=== PATIENT | male | born 1980 | race Caucasian/White ===

== ENCOUNTER 2017-11-01 13:48 | Emergency (ER) | payer BC, SELFPAY ==
[2017-11-01 14:00] VITALS: BP 153/94; PULSE 93; RESP 22; TEMP 37.1; O2SAT 97; BMI 28.2
--- NOTE | 2017-11-01 14:10 | HMH.EDUTC ---
[facility] [place] Disposition Clinical Impression: Acute thoracic back pain Qualifiers: Back pain laterality: midline Qualified Code(s): M54.6 - Pain in thoracic spine Low back pain Qualifiers: Chronicity: acute Back pain laterality: left Sciatica presence: without sciatica Qualified Code(s): M54.5 - Low back pain Disposition: Still a Patient Condition on Discharge: Good Time of Disposition: 14:40 (Transfer to ER) Medical Decision Making - Medical Records Medical records reviewed: Yes: I reviewed the patient's medical records. MR Comment: no prior visits here at [facility] Vital Signs: 11/01/17 14:00 Temperature 98.7 F Temperature Source Temporal Artery Scan Pulse Rate [Right Brachial] 93 H Respiratory Rate 22 Blood Pressure [Right Arm] 153/94 Blood Pressure Mean [Right Arm] 113 Blood Pressure Source [Right Arm] Automatic Cuff Blood Pressure Position [Right Arm] Sitting 02 Sat by Pulse Oximetry 97 Oxygen Delivery Method Room Air - Physician Consults Physician Consulted: Dr. La, ER Time: 14:34 Reason -: Pt condition Comment/Response: Discussed PMHx, HPI, exam. Would like to examine patient himself before he can discuss appropriate workup/necessity for CT scan. prefers transfer to ER before consulting on patient. Discussed with pt, pt agreeable to transfer. Report called to [facility]. Room 10 available. - Jose Carlos Inquiry Pt receiving controlled substance: No Jose Carlos was queried for this patient: Yes Reference #:: [id number] Comment: no recs, no prescriptions [facility] [place] HPI - General Stated complaint: Back Hurting Time Seen by Provider: 11/01/17 14:10 Mode of Arrival: Ambulatory Source of Information: Patient Limitations: No Limitations Description of Symptoms (Recalled from Triage Doc. by RN): C/O back pain, pt states woke up this morning with his whole back hurting, reports hx of sciatic pain HEENT Symptoms (Recalled from RN notes): No Resp Symptoms (Recalled from RN notes): No Skin Symptoms (Recalled from RN notes): No MS Symptoms (Recalled from RN notes): Yes (c/o back pain, states whole back is hurting ) Functional Status (Recalled from RN notes): n/a - History of Present Illness Provider Complaint: c/o severe thoracic spine and left lower back pain. hx of intermittent back pain but always low and last time over 5 years ago. No known injuries/trauma. Started mild but over the last 2 days, has progressed to severe. Saw chiropractor in the past but not this time. Has tried laying the way he recommended. Hasn't taken or tried anything else for pain. Denies fever. Denies hx any type of drug use. - Related Data Home Medications Medication Instructions Recorded Confirmed No Known Home Medications [No 11/01/17 11/01/17 Known Home Medications] Allergies Allergy/AdvReac Type Severity Reaction Status Date / Time No Known Allergies Allergy Verified 11/01/17 14:06 - Worker's Comp Is this a Worker's Comp case?: No Is this an [employer] Worker's Comp?: No Is this a [place] Worker's Comp?: No [facility] History I have reviewed the patient's past medical history: Yes Medical History: Denies:: Cancer, Diabetes Mellitus Type 1, Diabetes Mellitus Type 2, Hypertension, MRSA Other Medical History: Denies: Other (drug use) Laterality Cases: Right: Other Other Surgeries: Yes: Other (thyroid cyst) Amputation: No Fractures: No - *Social History Smoking Status: Current every day smoker Tobacco Type: cigarettes # Packs/Day (cigarettes): 1 Alcohol Intake: never - Psychiatric History Expresses thoughts of harming self/others: None Suicide Plan Description: No Plan ROS Obtained: Yes Systems reviewed as appropriate & no additional complaints - Constitutional Constitutional: Denies body ache, Denies chills, Reports difficulty sleeping, Denies fatigue, Denies poor appetite - Cardiovascular Cardiovascular: Denies chest pain, Denies irregular heart rhythm - Respiratory Respiratory: No dyspnea - Gastrointestinal Gastro
--- NOTE | 2017-11-01 14:21 | ED_ITS ---
[facility] [place] Clinical Impression: Acute thoracic back pain Qualifiers: Back pain laterality: midline Qualified Code(s): M54.6 - Pain in thoracic spine Low back pain Qualifiers: Chronicity: acute Back pain laterality: left Sciatica presence: without sciatica Qualified Code(s): M54.5 - Low back pain Disposition: Still a Patient Condition on Discharge: Good Time of Disposition: 14:40 (Transfer to ER) Medical Decision Making - Medical Records Medical records reviewed: Yes: I reviewed the patient's medical records. MR Comment: no prior visits here at [facility] Vital Signs: 11/01/17 14:00 Temperature 98.7 F Temperature Source Temporal Artery Scan Pulse Rate [Right Brachial] 93 H Respiratory Rate 22 Blood Pressure [Right Arm] 153/94 Blood Pressure Mean [Right Arm] 113 Blood Pressure Source [Right Arm] Automatic Cuff Blood Pressure Position [Right Arm] Sitting 02 Sat by Pulse Oximetry 97 Oxygen Delivery Method Room Air - Physician Consults Physician Consulted: Dr. La, ER Time: 14:34 Reason -: Pt condition Comment/Response: Discussed PMHx, HPI, exam. Would like to examine patient himself before he can discuss appropriate workup/necessity for CT scan. prefers transfer to ER before consulting on patient. Discussed with pt, pt agreeable to transfer. Report called to [facility]. Room 10 available. - Jose Carlos Inquiry Pt receiving controlled substance: No Jose Carlos was queried for this patient: Yes Reference #:: [id number] Comment: no recs, no prescriptions [facility] [place]PI - General Stated complaint: Back Hurting Time Seen by Provider: 11/01/17 14:10 Mode of Arrival: Ambulatory Source of Information: Patient Limitations: No Limitations Description of Symptoms (Recalled from Triage Doc. by RN): C/O back pain, pt states woke up this morning with his whole back hurting, reports hx of sciatic pain HEENT Symptoms (Recalled from RN notes): No Resp Symptoms (Recalled from RN notes): No Skin Symptoms (Recalled from RN notes): No MS Symptoms (Recalled from RN notes): Yes (c/o back pain, states whole back is hurting ) Functional Status (Recalled from RN notes): n/a - History of Present Illness Provider Complaint: c/o severe thoracic spine and left lower back pain. hx of intermittent back pain but always low and last time over 5 years ago. No known injuries/trauma. Started mild but over the last 2 days, has progressed to severe. Saw chiropractor in the past but not this time. Has tried laying the way he recommended. Hasn't taken or tried anything else for pain. Denies fever. Denies hx any type of drug use. - Related Data Home Medications Medication Instructions Recorded Confirmed No Known Home Medications [No 11/01/17 11/01/17 Known Home Medications] Allergies Allergy/AdvReac Type Severity Reaction Status Date / Time No Known Allergies Allergy Verified 11/01/17 14:06 - Worker's Comp Is this a Worker's Comp case?: No Is this an H Worker's Comp?: No Is this a [place] Worker's Comp?: No H History I have reviewed the patient's past medical history: Yes Medical History: Denies:: Cancer, Diabetes Mellitus Type 1, Diabetes Mellitus Type 2, Hypertension, MRSA Other Medical History: Denies: Other (drug use) Laterality Cases: Right: Other Other Surgeries: Yes: Other (thyroid cyst) Amputation: No Fractures: No - *Social History S
--- NOTE | 2017-11-01 15:22 | XR_ITS ---
XR chest 2V HISTORY: ITS.REASON: pain, cough ORDERING PHYSICIAN: Elio Sanchez PATIENT AGE: 37 years COMPARISON: None available FINDINGS: The cardiomediastinal silhouette and pulmonary vascularity are within normal limits. The lungs are clear without infiltrates, suspicious nodules, or pleural effusions. On the lateral view there are faint nodular opacities overlying the upper trachea anteriorly and could be due to small lymph nodes. No acute bony abnormalities. IMPRESSION: Possible small pretracheal lymph nodes otherwise negative chest
--- NOTE | 2017-11-01 15:23 | HMH.EDGENADL ---
ED Disposition Clinical Impression: Acute thoracic back pain Qualifiers: Back pain laterality: midline Qualified Code(s): M54.6 - Pain in thoracic spine Low back pain Qualifiers: Chronicity: acute Back pain laterality: left Sciatica presence: without sciatica Qualified Code(s): M54.5 - Low back pain Disposition: Home, Self-Care Condition on Discharge: Good Instructions: Low Back Pain, Thoracic Back Pain Additional Instructions: Follow-up with your family doctor return if worse to ER Prescriptions: Ibuprofen [Motrin 600mg Tablet] 600 mg PO Q6HP PRN #14 tab PRN Reason: Muscle Pain Cyclobenzaprine HCl [Flexeril 10mg tablet] 10 mg PO Q8HP PRN 7 Days #10 tab PRN Reason: Muscle Spasm Referrals: Gabe Aldridge MD [Primary Care Provider] - - Critical Care Critical Care Time: No Attestation: On 11/01/17, the high probability of a clinically significant, sudden or life threatening deterioration of the following system(s) required my full and direct attention, intervention and personal management. The time I documented below is in addition to time spent performing reported procedures but includes the following listed in this critical care notation. Medical Decision Making Vital Signs: 11/01/17 14:00 11/01/17 15:48 Temperature 98.7 F Temperature Source Temporal Artery Scan Pulse Rate 90 Pulse Rate [Right Brachial] 93 H Respiratory Rate 22 Blood Pressure [Right Arm] 153/94 Blood Pressure Mean [Right Arm] 113 Blood Pressure Source [Right Arm] Automatic Cuff Blood Pressure Position [Right Arm] Sitting 02 Sat by Pulse Oximetry 97 Oxygen Delivery Method Room Air Orders (Tests/Meds): ED MEDICATIONS Discontinued Medications Generic Name Dose Route Start Last Admin Trade Name Freq PRN Reason Stop Dose Admin Albuterol/Ipratropium 3 ml 11/01/17 15:23 11/01/17 15:47 Duoneb 3ml Neb IH 11/01/17 15:24 3 ml ONCE ONE Administration Ketorolac Tromethamine 30 mg 11/01/17 15:22 11/01/17 15:40 Toradol 30mg/Ml Vial IM 11/01/17 15:23 30 mg ONCE ONE Administration Orphenadrine Citrate 60 mg 11/01/17 15:23 11/01/17 15:37 Norflex 60mg/2ml Vial IM 11/01/17 15:24 60 mg ONCE ONE Administration ORDERS Category Date Time Status CXR 2 view (NOT portable) [XR chest 2V] Stat Exams 11/01/17 15:22 Taken - Radiology Data #1 Image(s): Chest Image Reviewed: Yes I reviewed the patient's radiology image Preliminary Findings: Normal/NAD, No Infiltrates Seen - Jose Carlos Inquiry Pt receiving controlled substance: No General Adult HPI - General Chief complaint: PAIN Stated complaint: Back Hurting Time Seen by Provider: 11/01/17 14:10 Mode of Arrival: Ambulatory Source of Information: Patient Limitations: No Limitations Description of Symptoms (Recalled from ER Triage Doc. by RN): C/O back pain, pt states woke up this morning with his whole back hurting, reports hx of sciatic pain - History of Present Illness HPI narrative: Patient complains of back pain in the posterior thoracic area going down into his low back he states she has been having some cough and when he has cough that pulls muscles in his back causing pain he denies any falls or specific injury but he states that he has been working and doing physical activity a lot. No complaint of urinary or bowel incontinence no fevers or chills he states his cough is dry. Has pain with movement or twisting of his back. Moderate and achy no radiation down the leg - Related Data Previous Rx's Medication Instructions Recorded Cyclobenzaprine HCl [Flexeril 10mg 10 mg PO Q8HP PRN 7 Days #10 tab 11/01/17 tablet] Ibuprofen [Motrin 600mg 600 mg PO Q6HP PRN #14 tab 11/01/17 Tablet] Allergies Allergy/AdvReac Type Severity Reaction Status Date / Time No Known Allergies Allergy Verified 11/01/17 14:06 [facility] History I have reviewed the patient's past medical history: Yes Medical Histor
--- NOTE | 2017-11-01 15:27 | ED_ITS ---
ED Disposition Clinical Impression: Acute thoracic back pain Qualifiers: Back pain laterality: midline Qualified Code(s): M54.6 - Pain in thoracic spine Low back pain Qualifiers: Chronicity: acute Back pain laterality: left Sciatica presence: without sciatica Qualified Code(s): M54.5 - Low back pain Disposition: Home, Self-Care Condition on Discharge: Good Instructions: Low Back Pain, Thoracic Back Pain Additional Instructions: Follow-up with your family doctor return if worse to ER Prescriptions: Ibuprofen [Motrin 600mg Tablet] 600 mg PO Q6HP PRN #14 tab PRN Reason: Muscle Pain Cyclobenzaprine HCl [Flexeril 10mg tablet] 10 mg PO Q8HP PRN 7 Days #10 tab PRN Reason: Muscle Spasm Referrals: Gabe Aldridge MD [Primary Care Provider] - - Critical Care Critical Care Time: No Attestation: On 11/01/17, the high probability of a clinically significant, sudden or life threatening deterioration of the following system(s) required my full and direct attention, intervention and personal management. The time I documented below is in addition to time spent performing reported procedures but includes the following listed in this critical care notation. Medical Decision Making Vital Signs: 11/01/17 14:00 11/01/17 15:48 Temperature 98.7 F Temperature Source Temporal Artery Scan Pulse Rate 90 Pulse Rate [Right Brachial] 93 H Respiratory Rate 22 Blood Pressure [Right Arm] 153/94 Blood Pressure Mean [Right Arm] 113 Blood Pressure Source [Right Arm] Automatic Cuff Blood Pressure Position [Right Arm] Sitting 02 Sat by Pulse Oximetry 97 Oxygen Delivery Method Room Air Orders (Tests/Meds): ED MEDICATIONS Discontinued Medications Generic Name Dose Route Start Last Admin Trade Name Freq PRN Reason Stop Dose Admin Albuterol/Ipratropium 3 ml 11/01/17 15:23 11/01/17 15:47 Duoneb 3ml Neb IH 11/01/17 15:24 3 ml ONCE ONE Administration Ketorolac Tromethamine 30 mg 11/01/17 15:22 11/01/17 15:40 Toradol 30mg/Ml Vial IM 11/01/17 15:23 30 mg ONCE ONE Administration Orphenadrine Citrate 60 mg 11/01/17 15:23 11/01/17 15:37 Norflex 60mg/2ml Vial IM 11/01/17 15:24 60 mg ONCE ONE Administration ORDERS Category Date Time Status CXR 2 view (NOT portable) [XR chest 2V] Stat Exams 11/01/17 15:22 Taken - Radiology Data #1 Image(s): Chest Image Reviewed: Yes I reviewed the patient's radiology image Preliminary Findings: Normal/NAD, No Infiltrates Seen - Jose Carlos Inquiry Pt receiving controlled substance: No General Adult HPI - General Chief complaint: PAIN Stated complaint: Back Hurting Time Seen by Provider: 11/01/17 14:10 Mode of Arrival: Ambulatory Source of Information: Patient Limitations: No Limitations Description of Symptoms (Recalled from ER Triage Doc. by RN): C/O back pain, pt states woke up this morning with his whole back hurting, reports hx of sciatic pain - History of Present Illness HPI narrative: Patient complains of back pain in the posterior thoracic area going down into his low back he states she has been having some cough and when he has cough that pulls muscles in his back causing pain he denies any falls or specific injury but he states that he has been working and doing physical activity a
[2017-11-01 15:48] VITALS: PULSE 90; PULSE 91
[2017-11-01 16:30] VITALS: BP 120/88; PULSE 82; RESP 20; TEMP 36.7; O2SAT 99
== END 2017-11-01 16:31 | disposition home or self-care (01) ==
LOC: UTC 14:40 → ER 14:46
PROVIDERS: Emergency Provider Nurse Practitioner Family; Family Provider Family Medicine; PCP Family Medicine
DX: M54.5 Low back pain (principal); M54.6 Pain in thoracic spine
CPT/HCPCS: 71046; 96372; 99281

== ENCOUNTER 2021-03-08 10:34 | Emergency (ER) | payer SELFPAY ==
[2021-03-08 10:35] VITALS: BP 163/105; PULSE 98; RESP 20; TEMP 37.1; O2SAT 99; BMI 26.9
--- NOTE | 2021-03-08 10:57 | HMH.EDUTC ---
[facility] [place] Disposition Clinical Impression: Sinusitis Qualifiers: Sinusitis location: maxillary Chronicity: acute Recurrence: non-recurrent Qualified Code(s): J01.00 - Acute maxillary sinusitis, unspecified Left otitis media Qualifiers: Otitis media type: suppurative Chronicity: acute Recurrence: non-recurrent Spontaneous tympanic membrane rupture: without spontaneous rupture Qualified Code(s): H66.002 - Acute suppurative otitis media without spontaneous rupture of ear drum, left ear Disposition: Home, Self-Care Condition on Discharge: Good Instructions: DI for Sinusitis Additional Instructions: Fluids, rest, Tylenol/Motrin as needed Prescriptions: Amoxicillin/Potassium Clav [Augmentin 875-125 Tablet] 1 tab PO Q12H 10 Days #20 tab Transmission Status: Pending to [facility] predniSONE [Prednisone 20mg Tab] 20 mg PO BID 5 Days #10 tab Transmission Status: Pending to [facility] Pseudoephedrine HCl [Sudafed 12 Hour 120mg Tab] 1 tab PO BID 10 Days #20 tab Transmission Status: Pending to [facility] Referrals: Provider,Referral, [Primary Care Provider] - Forms: Work/School Release Time of Disposition: 11:08 Medical Decision Making - Jose Carlos Inquiry Pt receiving controlled substance: No [facility] [place] HPI - General Stated complaint: sinus pain, ear drainage Time Seen by Provider: 03/08/21 10:57 - History of Present Illness Provider Complaint: Left ear pain, pain and swelling in left cheek, and sore throat X 2 days. No fever. No vomiting or diarrhea. No cough. No loss of taste or smell. No rash. Onset (ago): day(s) (2) Location: face Relieving factors: none Exacerbating factors: none Associated symptoms: denies other symptoms Treatments prior to arrival: NSAID - Related Data Previous Rx's Medication Instructions Recorded Cyclobenzaprine HCl [Flexeril 10mg 10 mg PO Q8HP PRN 7 Days #10 tab 11/01/17 tablet] Ibuprofen [Motrin 600mg 600 mg PO Q6HP PRN #14 tab 18 Tablet] Amoxicillin/Potassium Clav 1 tab PO Q12H 10 Days #20 tab 03/08/21 [Augmentin 875-125 Tablet] Pseudoephedrine HCl [Sudafed 12 1 tab PO BID 10 Days #20 tab 03/08/21 Hour 120mg Tab] predniSONE [Prednisone 20mg 20 mg PO BID 5 Days #10 tab 03/08/21 Tab] Allergies Allergy/AdvReac Type Severity Reaction Status Date / Time No Known Allergies Allergy Verified 11/01/17 14:06 [facility] History - Hepatitis A Screen Attestation statement:: This patient has been screened for Hepatitis A risk factors. I have reviewed the patient's past medical history: Yes Medical History: Denies:: Cancer, Diabetes Mellitus Type 1, Diabetes Mellitus Type 2, Hypertension, MRSA Other Medical History: Denies: Other (drug use) Laterality Cases: Right: Other Other Surgeries: Yes: Other (thyroid cyst) Amputation: No Fractures: No - Social History Smoking Status: Current every day smoker Tobacco Type: cigarettes # Packs/Day (cigarettes): 1 Alcohol Intake: never ROS Obtained: Yes All systems reviewed & no additional complaints - Constitutional Constitutional: Reports body ache, Reports chills, Denies fever(s), Reports headache(s), Reports malaise - ENT Ears, Nose, Mouth, and Throat: Reports facial pain, Reports nasal congestion, Reports sore throat - Respiratory Respiratory: Reports cough Physical Exam - General General appearance: alert, in no apparent distress - Head Head exam: normocephalic - Eye Eye exam: Present: PERRL - Expanded ENT Exam TM/Canal exam: Left TM: erythema, bulging Nose exam: Present: sinus tenderness (left maxillary) Throat exam: Present: other (thick yellow PND) - Respiratory Respiratory exam: Present: normal lung sounds bilaterally - Cardiovascular Cardiovascular exam: Present: regular rate, normal rhythm - Neurological Exam Neurological exam: Present: alert, oriented X3 - Psychiatric Psychiatric exam: Present: normal affect, normal mood - Skin
[2021-03-08 11:15] VITALS: BP 163/105; PULSE 98; RESP 20; TEMP 37.1; O2SAT 99
== END 2021-03-08 11:17 | disposition home or self-care (01) ==
PROVIDERS: Emergency Provider Physician Assistant
DX: J01.00 Acute maxillary sinusitis, unspecified (principal); H66.002 Acute suppurative otitis media without spontaneous rupture of ear drum, left ear; F17.210 Nicotine dependence, cigarettes, uncomplicated
CPT/HCPCS: 99202; G0463

== ENCOUNTER 2021-10-04 20:02 | Emergency (ER) | payer BC, SELFPAY ==
[2021-10-04 21:32] VITALS: BP 133/89; PULSE 97; RESP 18; TEMP 38.3; O2SAT 96; BMI 28.2
[2021-10-04 21:46] LABS: UTC Influenza A Antigen Positive (Negative); UTC Influenza B Antigen Negative (Negative)
--- NOTE | 2021-10-04 21:46 | HMH.EDUTC ---
[facility] [place] Clinical Impression: Influenza A Disposition: Home, Self-Care Condition on Discharge: Good Instructions: Influenza, DI for Influenza -- Adult, DI for COVID-19 (Suspected or Confirmed ), Preventing the Spread of Coronavirus Discharge Instructions Additional Instructions: Drink plenty of fluids. Take tylenol or ibuprofen for pain or fever. Take the medications as directed. Follow up with your regular doctor. GO TO THE ER FOR ANY WORSENING SYMPTOMS Quarantine until you know the results of your covid-19 test. If it is positive, the health department should call you and give you further instructions about your length of Quarantine and other things. Notify your school or workplace of your results and follow their instructions regarding return to work/school. The cough medication (promethazine dm) will make you drowsy, so don't drive or operate heavy machinery after taking it. Prescriptions: Promethazine/Dextromethorphan [Promethazine-Dm Syrup] 5 ml PO Q6HP PRN #240 ml PRN Reason: Cough Transmission Status: Received by [facility] Ondansetron [Zofran 4mg ODT] 4 mg PO Q8HP PRN #20 tab PRN Reason: Nausea Transmission Status: Received by [facility] methylPREDNISolone [Medrol] 4 mg PO DIRECTED 6 Days #21 packet Transmission Status: Received by [facility] Oseltamivir Phosphate [Tamiflu 75mg Capsule] 75 mg PO BID #10 cap Transmission Status: Received by [facility] Azithromycin [Z-Yan 250mg Tab*] 250 mg PO UD DOSE PK #6 tab Transmission Status: Received by [facility] Referrals: Provider,Referral, [Primary Care Provider] - Forms: Work/School Release Time of Disposition: 22:19 Medical Decision Making - Medical Records Medical records reviewed: No: I reviewed the patient's medical records. - Jose Carlos Inquiry Pt receiving controlled substance: No Vital Signs: 10/04/21 21:32 10/04/21 22:20 Temperature 100.9 F H 100.9 F H Temperature Source Oral Pulse Rate 97 H Pulse Rate [Left] 97 H Respiratory Rate 18 18 Blood Pressure 133/89 Blood Pressure [Right Arm] 133/89 Blood Pressure Mean [Right Arm] 103 02 Sat by Pulse Oximetry 96 - Lab Data Lab results reviewed: Yes: I reviewed the patient's lab results. Lab Results 10/04/21 21:37: Influenza Type A Ag Positive A, Influenza Type B Ag Negative [facility] [place] HPI - General Stated complaint: covid symptoms Time Seen by Provider: 10/04/21 21:46 Mode of Arrival: Ambulatory Source of Information: Patient Limitations: No Limitations Description of Symptoms (Recalled from Triage Doc. by RN): PT C/O A FEVER, SOA, BODY ACHES, CONGESTION, WEAKNESS AND A KELLY SINCE YESTERDAY. HEENT Symptoms (Recalled from RN notes): Yes (KELLY AND CONGESTION) Resp Symptoms (Recalled from RN notes): Yes (SOA) Skin Symptoms (Recalled from RN notes): No MS Symptoms (Recalled from RN notes): No Functional Status (Recalled from RN notes): WNL - History of Present Illness Provider Complaint: He states that he started to feel bad this morning. Through out today he has felt progressively worse. He has body aches, chills, sore throat, cough and chest tightness. - Related Data Previous Rx's Medication Instructions Recorded Cyclobenzaprine HCl [Flexeril 10mg 10 mg PO Q8HP PRN 7 Days #10 tab 11/01/17 tablet] Ibuprofen [Motrin 600mg 600 mg PO Q6HP PRN #14 tab 11/01/17 Tablet] Amoxicillin/Potassium Clav 1 tab PO Q12H 10 Days #20 tab 03/08/21 [Augmentin 875-125 Tablet] Pseudoephedrine HCl [Sudafed 12 1 tab PO BID 10 Days #20 tab 03/08/21 Hour 120mg Tab] predniSONE [Prednisone 20mg 20 mg PO BID 5 Days #10 tab 03/08/21 Tab] Azithromycin [Z-Yan 250mg Tab*] 250 mg PO UD DOSE PK #6 tab 10/04/21 Ondansetron [Zofran 4mg ODT] 4 mg PO Q8HP PRN #20 tab 10/04/21 Oseltamivir Phosphate [Tamiflu 75 mg PO BID #10 cap 10/04/21 75mg Capsule] Promethazine/Dextromethorphan 5 ml
[2021-10-04 22:20] VITALS: BP 133/89; PULSE 97; RESP 18; TEMP 38.3
== END 2021-10-04 22:25 | disposition home or self-care (01) ==
LOC: UTC 20:05
PROVIDERS: Emergency Provider Nurse Practitioner Family
DX: J10.1 Influenza due to other identified influenza virus with other respiratory manifestations (principal); U07.1 COVID-19
CPT/HCPCS: 87804; 99203; C9803; G0463; U0003; U0005

== ENCOUNTER → 2022-10-13 13:49 | Outpatient (CLI) | payer BC, SELFPAY ==
--- NOTE | 2022-10-13 14:01 | XR_ITS ---
FINAL REPORT CLINICAL HISTORY: SACROILIAC JOINT PAIN FINDINGS: Five views were obtained. There is no acute fracture. There is no malalignment. The disc spaces are maintained. IMPRESSION: No acute process. Reviewed, Interpreted and Dictated by Rhonda Villarreal MD Transcribed by Anselmo Bowman Authenticated and [facility]
== END ==
PROVIDERS: PCP Family Medicine; Visit Provider Family Medicine
DX: M53.3 Sacrococcygeal disorders, not elsewhere classified (principal)
CPT/HCPCS: 72110